=== PATIENT | male | born 1970 | race Caucasian/White ===

== ENCOUNTER → 2018-02-12 12:46 | Outpatient (CLI) | payer OTHER, MEDICAID, SELFPAY ==
--- NOTE | 2018-02-12 12:54 | DI.CT.S_ITS ---
PROCEDURE: CT CHEST W CON INDICATIONS: CHRONIC LYMPHOCYTIC LEUKEMIA SURVEILLANCE TECHNIQUE: After the administration of intravenous contrast, 5 mm thick sections acquired from the pulmonary apices to the posterior costophrenic angles. 7 mm thick coronal and sagittal MIP reformats were acquired. For radiation dose reduction, the following was used: automated exposure control, adjustment of mA and/or kV according to patient size. COMPARISON: [place], [place], PET/CT SKULL BASE TO MID THIGH, 10/31/2017, 9:46. FINDINGS: Image quality: Excellent. Lungs and pleura: Previously noted 0.8 cm spiculated pulmonary nodule in the posteromedial right upper lobe on axial image 11 is stable when compared to prior exam. Previously noted 0.4 cm spiculated pulmonary nodule in the anterolateral right upper lobe on axial image 13 is stable when compared to prior exam. Previously noted 1.5 cm spiculated pulmonary mass in the right upper lobe on axial image 18 is stable when compared to prior exam. An oval groundglass opacity in the posterior right upper lobe has largely resolved (now barely seen on axial image 26. An oval round glass opacity in the right lower lobe on axial image 33 is increased in size and prominence from prior exam. No pleural effusions or pneumothorax. Central and peripheral airways are patent and normal in caliber. Mediastinum: Heart size is normal. No pericardial effusion. No mediastinal or hilar adenopathy by size criteria. Thoracic aorta and central pulmonary arteries are normal in size. Esophagus is normal in caliber. Incidental note is made of the left subclavian vein having aberrant drainage; the drainage pathway is difficult to dilineate on these provided images but appears to drain to the left atrium (less likely main pulmonary artery). Bones and chest wall: No aggressive osseous lesions are identified. Old healed posterior left rib fractures are noted. No vertebral body compression fractures. Bilateral axillary lymph nodes are similar in appearance to prior comparison exam, and remain mildly prominent and increased in number. Previously identified hypoattenuating nodule in the right thyroid lobe currently measures 2.3 cm in size, slightly increased from prior exam. Abdomen: Partially imaged superior pole of the right kidney contains a subcentimeter hypoattenuating focus that is too small to fully characterize on this exam but likely represents a renal cyst. IMPRESSION: #1. Mixed progression of groundglass opacities in the right upper lobe, with one area resolving and another worsening as described above. This may represent sequela of aspiration, low-grade infection, or variable progression of malignancy. #2. Spiculated nodules in the right upper lobe (largest measuring up to 1.5 cm) are again suspicious for neoplasm such as a slow growing adenocarcinoma or metastatic disease, but are stable since comparison PET/ CT of 10/31/17. #3. Mild interval increase in size of a 2.3 cm right thyroid lobe nodule; recommend thyroid ultrasound when feasible (if not already recently performed). #4. Stable bilaterally prominent axillary lymph nodes. Dictated by: Sean Garcia M.D. on 02/12/2018 at 13:25 Approved by: Sean Garcia M.D. on 02/12/2018 at 14:09
== END ==
PROVIDERS: PCP Internal Medicine Hematology & Oncology; Visit Provider Internal Medicine Hematology & Oncology
DX: C91.90 Lymphoid leukemia, unspecified not having achieved remission (principal); E04.1 Nontoxic single thyroid nodule
CPT/HCPCS: 71260; Q9967

== ENCOUNTER → 2018-02-12 13:17 | Outpatient (CLI) | payer OTHER, MEDICAID, SELFPAY ==
[2018-02-12 13:35] LABS: Add Manual Diff / Slide Review YES; Hematocrit 43.8 % (41-53); Mean Corpuscular HGB Conc 34.2 % (30-36); Mean Corpuscular Hemoglobin 31.3 PG (26-34); Mean Corpuscular Volume 91.6 fL (80-100); Platelet Count 183 X10^3/uL (150-400); Red Blood Cell Count 4.78 X10^6/uL (4.5-5.9); Red Cell Distribution Width 13.9 % (11.6-14.8)
[2018-02-12 14:03] LABS: Alanine Aminotransferase 49 IU/L (21-72); Albumin 4.5 g/dL (3.5-5.0); Albumin Globulin Ratio 2.1 (1.0-2.8); Alkaline Phosphatase 57 U/L (38-126); Aspartate Aminotransferase 58 IU/L (17-59); BUN Creatinine Ratio 11.4 (6-22); Bilirubin Total 0.6 mg/dL (0.2-1.3); Blood Urea Nitrogen 8 mg/dL (9-20); Calcium 9.1 mg/dL (8.4-10.2); Carbon Dioxide 25 mmol/L (22-32); Chloride 101 mmol/L (98-107); Estimated Glomerular Filt Rate > 60.0 mL/min (>60); Globulin 2.1 g/dL (1.7-4.1); Glucose 82 mg/dL (70-100); HEMOLYSIS < 15 (0-50); Potassium 4.2 mmol/L (3.4-5.1); Sodium 138 mmol/L (137-145); Total Protein 6.6 g/dL (6.3-8.2)
[2018-02-12 14:05] LABS: Lactate Dehydrogenase 448 U/L (313-618)
[2018-02-12 14:08] LABS: Neutrophils Absolute Manual 3240 /uL (3000-5900); Total Cells Counted 100
== END ==
PROVIDERS: PCP Internal Medicine Hematology & Oncology; Visit Provider Internal Medicine Hematology & Oncology
DX: C91.10 Chronic lymphocytic leukemia of B-cell type not having achieved remission (principal)
CPT/HCPCS: 36415; 80053; 83615; 85025

== ENCOUNTER → 2018-05-13 10:34 | Outpatient (CLI) | payer OTHER, MEDICAID, SELFPAY ==
--- NOTE | 2018-05-13 10:47 | DI.CT.S_ITS ---
PROCEDURE: CT CHEST W CON INDICATIONS: surveillance, lung mass TECHNIQUE: After the administration of intravenous contrast, 5 mm thick sections acquired from the pulmonary apices to the posterior costophrenic angles. 7 mm thick coronal and sagittal MIP reformats were acquired. For radiation dose reduction, the following was used: automated exposure control, adjustment of mA and/or kV according to patient size. COMPARISON: [facility], CT, THORAX WITH CONTRAST, 05/31/2016, 11:37. Outside Facility, , CT THORAX/ABDOMEN/PELVIS WITH CONTRAST, 09/12/2015, 6:26. [facility], CT, CHEST/ABDOMEN WITH CONTRAST, 09/06/2017, 9:22. [facility], [place], PET/CT SKULL BASE TO MID THIGH, 10/31/2017, 9:46. [facility], CT, CT CHEST W CON, 02/12/2018, 12:54. FINDINGS: Image quality: Excellent. Lungs and pleura: No acute consolidation there redemonstration of spiculated nodule involving the right upper lobe image 20 series 2 is again noted and grossly unchanged since 02/12/18. Additional smaller 5 mm ill-defined partially groundglass nodule seen on image 20 series 2 in the right upper lobe, also grossly unchanged. No pleural effusions or pneumothorax. Central and peripheral airways are patent and normal in caliber. Ill-defined tree in bud like opacity seen in the right middle lobe Mediastinum: Heart size is normal. No pericardial effusion. Borderline enlarged right hilar lymph node seen on image 34 series 3. This is unchanged. There is additional confluent prominent hilar soft tissue without definite pathologic enlargement. Thoracic aorta and central pulmonary arteries are normal in size. Esophagus is normal in caliber. No hiatal hernia. Bones and chest wall: No suspicious bony lesions. Presumed chronic left rib fracture on image 45 series 2 with callus. No vertebral body compression fractures. Prominent bilateral axillary lymph nodes without definite pathologic enlargement and preserved fatty hilum. Thyroid gland contains a low-attenuation 2.3 cm nodule, unchanged. Abdomen: Visualized upper abdominal solid organs appear normal. Upper abdominal bowel loops are normal in caliber. IMPRESSION: Overall, grossly unchanged appearance of multiple right upper lobe ill-defined and spiculated nodules, since 02/12/18. Given the relatively short followup time the differential as previously discussed remains the same. Metastatic disease or indolent tumor such as adenocarcinoma cannot be excluded. Low-attenuation right thyroid lobe nodule as before. Dictated by: Jose Elias Dickson M.D. on 05/13/2018 at 15:13 Approved by: Jose Elias Dickson M.D. on 05/13/2018 at 15:23
[2018-05-13 11:09] LABS: Alanine Aminotransferase 43 IU/L (21-72); Albumin 4.4 g/dL (3.5-5.0); Albumin Globulin Ratio 1.8 (1.0-2.8); Alkaline Phosphatase 60 U/L (38-126); Aspartate Aminotransferase 44 IU/L (17-59); BUN Creatinine Ratio 8.6 (6-22); Bilirubin Total 0.4 mg/dL (0.2-1.3); Blood Urea Nitrogen 6 mg/dL (9-20); Calcium 9.3 mg/dL (8.4-10.2); Carbon Dioxide 30 mmol/L (22-32); Chloride 104 mmol/L (98-107); Estimated Glomerular Filt Rate > 60.0 mL/min (>60); Globulin 2.4 g/dL (1.7-4.1); Glucose 77 mg/dL (70-100); HEMOLYSIS < 15 (0-50); Hematocrit 43.8 % (41-53); Hemoglobin 14.9 g/dL (13.5-17.5); Mean Corpuscular HGB Conc 33.9 % (30-36); Mean Corpuscular Hemoglobin 31.3 PG (26-34); Mean Corpuscular Volume 92.1 fL (80-100); Platelet Count 269 X10^3/uL (150-400); Red Blood Cell Count 4.75 X10^6/uL (4.5-5.9); Red Cell Distribution Width 13.7 % (11.6-14.8); Sodium 144 mmol/L (137-145); Total Protein 6.8 g/dL (6.3-8.2)
[2018-05-13 11:12] LABS: Lactate Dehydrogenase 478 U/L (313-618)
[2018-05-13 11:20] LABS: Add Manual Diff / Slide Review YES
[2018-05-13 11:21] LABS: White Blood Cell Count 32.5 X10^3/uL (4.5-11.0)
[2018-05-13 12:51] LABS: Neutrophils Absolute Manual 2275 /uL (3000-5900); Total Cells Counted 100
[2018-05-13 12:53] LABS: Smudge Cells 2+
[2018-05-13 15:32] LABS: RBC Morphology Normal Morphology
== END ==
PROVIDERS: Internal Medicine Hematology & Oncology; PCP Internal Medicine Hematology & Oncology; Visit Provider Internal Medicine Hematology & Oncology
DX: R91.8 Other nonspecific abnormal finding of lung field (principal); C91.90 Lymphoid leukemia, unspecified not having achieved remission; E04.1 Nontoxic single thyroid nodule
CPT/HCPCS: 36415; 71260; 80053; 83615; 85025; Q9967

== ENCOUNTER 2018-05-17 15:00 | Oncology outpatient (ONC) | payer OTHER, MEDICAID, SELFPAY ==
[2018-02-14 15:50] VITALS: BP 105/66; PULSE 80; RESP 18; TEMP 37.2; O2SAT 97
--- NOTE | 2018-02-14 18:13 | ONC.PN ---
Assessment and Plan (1) Papillary thyroid carcinoma Current visit: Yes Status: Acute 02/14/18 18:32 I encouraged him to contact Dr. Hutchinson office to set up ultrasound of thyroid and cervical lymph nodes and FNA if needed at [facility], and a follow-up visit with Dr. Hutchinson afterwards. If cervical lymph node is negative for metastatic thyroid carcinoma, the plan for this gentleman would be right hemithyroidectomy. (2) Right upper lobe pulmonary nodule Current visit: Yes Status: Acute 02/14/18 18:33 In my opinion, the largest right upper lobe spiculated nodule, measuring 1.5 cm in size, even though unchanged as compared to PET-CT 10/2017, remains suspicious for indolent primary lung cancer. I offered of percutaneous biopsy or thoracic surgery consultation, but he is hesitant and would like to continue monitoring, which is reasonable. I have requested a follow-up chest CT with IV contrast in 3 months and afterwards he will see 1 of the new oncology providers in this office. (3) Chronic lymphocytic leukemia Current visit: No Status: Acute 02/14/18 18:34 CLL, stage II, associated with favorable prognosis, non symptomatic, stable. WBC count is 27,000, absolute lymphocyte count 12,000, hemoglobin hematocrit and platelet count all normal. No indication for therapy. Continue monitoring. PN -Subjective Interval history: Shay Dominguez is a 48-year-old chronic smoker gentleman, presenting today for oncology follow-up. He has multiple oncologic diagnosis. He has CLL, verified by flow cytometry of peripheral blood in 08/2015. CLL remains non symptomatic and he has not needed any treatment for it. CLL FISH was positive for deletion 13q, which is associated with favorable prognosis. CLL is stage II. He has established diagnosis of right-sided thyroid papillary carcinoma. He has not undergone surgery for this yet. Recent PET-CT 10/31/2017 for assessment of lung nodules showed right thyroid nodule with SUV 1.9. Thyroid ultrasound 06/06/2017 showed dominant mixed cystic and solid nodule in right lobe, 2.7 cm in size, hypoechoic with irregular margins. Additionally there was a 6 mm solid appearing nodule with hypoechoic appearance and smooth margins in right upper pole. Left lobe was normal. FNA 07/02/2017 showed [place] category III, follicular lesion of undetermined significance. Specimen consisted of abundant follicular cells with scant colloid. Molecular testing with someThyGenX assay was positive for BRAF V600E mutation, which is associated with over 95% likelihood of papillary carcinoma. He was evaluated by Dr. Aaron Hutchinson, slag worker at [facility]. Dr. Hutchinson recommended some repeat ultrasound and FNA of cervical lymph node, but this has not been done yet. Chang it is strongly against doing any testing or treatment at [facility]. He would like to do ultrasound and cervical lymph node FNA at [facility], but this has not been arranged by Dr. Hutchinson office yet. Another oncologic issue is pulmonary nodules. This gentleman has smoked 32 years, x2 packs per day and continues to smoke. He has been monitored for right upper lobe lung nodules. PET-CT 10/31/2017 showed an 8 mm spiculated nodule in medial right upper lobe, progressively increased in size as compared to prior studies, with SUV 1.2. More inferiorly, another spiculated right upper lobe nodule measured up to 1.3 cm in size, SUV 1.5. Third nodule was 4 mm, too small to evaluate with PET-CT. Current CT chest with IV contrast 02/12/2018 redemonstrates the 8 mm, 15 mm, and 4 mm pulmonary nodules, all stable. Previous oval ground-glass opacity in posterior right upper lobe has largely resolved, but another oval ground-glass opacity in right lower lobe has increased in size and prominence. There is stable bilateral prominent axillary lymph nodes, related to CLL. Of all of these nodules, to 1.5 cm nodule is suspicious for slowly growing neoplasm. In fact, we reviewed prior year CT scan from early 2015, and I did not see any evidence of spiculated 1.5 cm current nodule back then. Subjectively, this patient has no physical symptoms or complaints. He denies B symptoms. He continues to smoke but would like to try to quit a near future. He has renal waiting his apartment. He is upset that his thyroid ultrasound and FNA have not been is scheduled at [facility] yet, but at the same time says that he cannot undergo surgery for thyroid cancer until March. Home Medications and Allergies Home Medications Medication Instructions Recorded Confirmed Type oxycodone [OxyContin] 10 mg PO BID #0 10/06/17 History Allergies Allergy/AdvReac Type Severity Reaction Status Date / Time phenytoin [From DILANTIN] AdvReac Severe MACULAR Unverified 10/31/17 11:58 RASH levetiracetam [From [facility]] AdvReac Intermediate RASH Unverified 10/31/17 11:58 Exam Vital signs: Last Vital Signs Temp 99.0 F 02/14/18 15:50 Pulse 80 02/14/18 15:50 Resp 18 02/14/18 15:50 BP 105/66 02/14/18 15:50 Pulse Ox 97 02/14/18 15:50 - Constitutional positive no acute distress - Routine HEENT Exam Head: Present: normocephalic, atraumatic - Routine Neck Exam Present: supple. Absent: lymphadenopathy - Routine Respiratory Exam Present: Clear to auscultation bilaterally
--- NOTE | 2018-02-14 18:18 | P.PNONC_ITS ---
Assessment and Plan (1) Papillary thyroid carcinoma Current visit: Yes Status: Acute 02/14/18 18:32 I encouraged him to contact Dr. Hutchinson office to set up ultrasound of thyroid and cervical lymph nodes and FNA if needed at [facility], and a follow-up visit with Dr. Hutchinson afterwards. If cervical lymph node is negative for metastatic thyroid carcinoma, the plan for this gentleman would be right hemithyroidectomy. (2) Right upper lobe pulmonary nodule Current visit: Yes Status: Acute 02/14/18 18:33 In my opinion, the largest right upper lobe spiculated nodule, measuring 1.5 cm in size, even though unchanged as compared to PET-CT 10/2017, remains suspicious for indolent primary lung cancer. I offered of percutaneous biopsy or thoracic surgery consultation, but he is hesitant and would like to continue monitoring, which is reasonable. I have requested a follow-up chest CT with IV contrast in 3 months and afterwards he will see 1 of the new oncology providers in this office. (3) Chronic lymphocytic leukemia Current visit: No Status: Acute 02/14/18 18:34 CLL, stage II, associated with favorable prognosis, non symptomatic, stable. WBC count is 27,000, absolute lymphocyte count 12,000, hemoglobin hematocrit and platelet count all normal. No indication for therapy. Continue monitoring. PN -Subjective Interval history: Shay Dominguez is a 48-year-old chronic smoker gentleman, presenting today for oncology follow-up. He has multiple oncologic diagnosis. He has CLL, verified by flow cytometry of peripheral blood in 08/2015. CLL remains non symptomatic and he has not needed any treatment for it. CLL FISH was positive for deletion 13q, which is associated with favorable prognosis. CLL is stage II. He has established diagnosis of right-sided thyroid papillary carcinoma. He has not undergone surgery for this yet. Recent PET-CT 10/31/2017 for assessment of lung nodules showed right thyroid nodule with SUV 1.9. Thyroid ultrasound 06/06/2017 showed dominant mixed cystic and solid nodule in right lobe, 2.7 cm in size, hypoechoic with irregular margins. Additionally there was a 6 mm solid appearing nodule with hypoechoic appearance and smooth margins in right upper pole. Left lobe was normal. FNA 07/02/2017 showed [place] category III, follicular lesion of undetermined significance. Specimen consisted of abundant follicular cells with scant colloid. Molecular testing with someThyGenX assay was positive for BRAF V600E mutation, which is associated with over 95% likelihood of papillary carcinoma. He was evaluated by Dr. Aaron Hutchinson, mate fishing vessel at [facility]. Dr. Hutchinson recommended some repeat ultrasound and FNA of cervical lymph node, but this has not been done yet. Chang it is strongly against doing any testing or treatment at [facility]. He would like to do ultrasound and cervical lymph node FNA at [facility], but this has not been arranged by Dr. Hutchinson office yet. Another oncologic issue is pulmonary nodules. This gentleman has smoked 32 years, x2 packs per day and continues to smoke. He has been monitored for right upper lobe lung nodules. PET-CT 10/31/2017 showed an 8 mm spiculated nodule in medial right upper lobe, progressively increased in size as compared to prior studies, with SUV 1.2. More inferiorly, another spiculated right upper lobe nodule measured up to 1.3 cm in size, SUV 1.5. Third nodule was 4 mm , too small to evaluate with PET-CT. Current CT chest with IV contrast 2017 redemonstrates the 8 mm, 15 mm, and 4 mm pulmonary nodules, all stable. Previous oval ground-glass opacity in posterior right upper lobe has largely resolved, but another oval ground-glass opacity in right lower lobe has increased in size and prominence. There is stable bilateral prominent axillary lymph nodes, related to CLL. Of all of these nodules, to 1.5 cm nodule is suspicious for slowly growing neoplasm. In fact, we reviewed prior year CT scan from early 2015, and I did not see any evidence of spiculated 1.5 cm current nodule back then. Subjectively, this patient has no physical symptoms or complaints. He denies B symptoms. He continues to smoke but would like to try to quit a near future. He has renal waiting his apartment. He is upset that his thyroid ultrasound and FNA have not been is scheduled at [facility] yet, but at the same time says that he cannot undergo surgery for thyroid cancer until March. Home Medications and Allergies Home Medications Medication Instructions Recorded Confirmed Type oxycodone [OxyContin] 10 mg PO BID #0 10/06/17 History Allergies Allergy/AdvReac Type Severity Reaction Status Date / Time phenytoin [From DILANTIN] AdvReac Severe MACULAR Unverified 10/31/17 11:58 RASH levetiracetam [From [facility]] AdvReac Intermediate RASH Unverified 10/31/17 11:58 Exam Vital signs: Last Vital Signs Temp 99.0 F 02/14/18 15:50 Pulse 80 02/14/18 15:50 Resp 18 02/14/18 15:50 BP 105/66 02/14/18 15:50 Pulse Ox 97 02/14/18 15:50 - Constitutional positive no acute distress - Routine HEENT Exam Head: Present: normocephalic, atraumatic - Routine Neck Exam Present: supple. Absent: lymphadenopathy - Routine Respiratory Exam Present: Clear to auscultation bilaterally
--- NOTE | 2018-05-17 15:27 | P.PNONC_ITS ---
PN -Subjective Interval history: Chief Complaint: 48 year old man with CLL, thyroid nodule and pulmonary nodules here to review the repeat CT chest result. Oncological History: 1. He has CLL, verified by flow cytometry of peripheral blood in 08/2015. CLL remains asymptomatic and he has not needed any treatment. CLL FISH was positive for deletion 13q, which is associated with favorable prognosis. CLL is stage II. 2. He has established diagnosis of right-sided thyroid papillary carcinoma. He has not undergone surgery for this yet. Thyroid ultrasound 06/06/2017 showed dominant mixed cystic and solid nodule in right lobe, 2.7 cm in size, hypoechoic with irregular margins. Additionally there was a 6 mm solid appearing nodule with hypoechoic appearance and smooth margins in right upper pole. Left lobe was normal. FNA 07/02/2017 showed [place] category III, follicular lesion of undetermined significance. Specimen consisted of abundant follicular cells with scant colloid. Molecular testing with ThyGenX assay was positive for BRAF V600E mutation, which is associated with over 95% likelihood of papillary carcinoma. He was evaluated by Dr. Aaron Hutchinson, certified detention deputy at [facility]. Dr. Oscar recommended total thyroidectomy, but the patient would not agree and would like to accept right thyroidectomy only. Up until now, he has not any any surgery done yet. Recent PET-CT 10/31/2017 for assessment of lung nodules showed right thyroid nodule with SUV 1.9. 3. Another oncologic issue is pulmonary nodules. This gentleman has smoked for 32 years, x2 packs per day and continues to smoke. He has been monitored for right upper lobe lung nodules. PET-CT 10/31/2017 showed an 8 mm spiculated nodule in medial right upper lobe, progressively increased in size as compared to prior studies, with SUV 1.2. More inferiorly, another spiculated right upper lobe nodule measured up to 1.3 cm in size, SUV 1.5. Third nodule was 4 mm , too small to evaluate with PET-CT. Current CT chest with IV contrast 2017 redemonstrates the 8 mm, 15 mm, and 4 mm pulmonary nodules, all stable. Previous oval ground-glass opacity in posterior right upper lobe has largely resolved, but another oval ground-glass opacity in right lower lobe has increased in size and prominence. There is stable bilateral prominent axillary lymph nodes, related to CLL. Of all of these nodules, to 1.5 cm nodule is suspicious for slowly growing neoplasm. Biopsy was recommended, but patient refused. Interim Events: On 04/09/2018, Dr. Oscar requested repeat FNA on the right thyroid nodules. The cytology showed atypia of undetermined significance, as well as FNA of submandibular lymph node showed abnormal B cell population consistaent with involvement by patient's previously diagnosed B cell lymphoproliferative disorder per flow cytometry Yesterday patient underwent repeat CT scan of the chest with contrast. At the CT scan showed overall grossly unchanged appearance of multiple right upper lobe ill-defined at spiculated nodules, since February 12 2018. Given the relatively short follow-up time the differential as previously discussed remains the same. Metastatic disease or indolent tumor such as adenocarcinoma cannot be excluded. Once again low attenuation right thyroid lobe nodule was seen. Clinically, he has no physical symptoms or complaints. He denies B symptoms. He continues to smoke. - Additional ROS All systems PM: reviewed and no additional remarkable complaints except as stated Home Medications and Allergies Allergies Allergy/AdvReac Type Severity Reaction Status Date / Time phenytoin [From DILANTIN] AdvReac Severe MACULAR Verified 05/17/18 15:30 RASH levetiracetam [From [facility]] AdvReac Intermediate RASH Verified 05/17/18 15:30 Exam Vital signs: Last Vital Signs Temp 99.4 F 05/17/18 15:28 Pulse 82 05/17/18 15:28 Resp 16 05/17/18 15:28 BP 130/74 05/17/18 15:28 Pulse Ox 99 05/17/18 15:28 ECOG 1 Narrative: Constitutional: Well developed, fit, not in any acute respiratory distress, average body habitus, well groomed, pleasant and cooperative. HEENT: Normocephalic atraumatic. Extraocular muscle movement intact. Pupils are round, equal and reactive to light and accommodations. Anicteric sclera. No hearing difficulty; Oral mucus membrane moist and without ulcers. Neck: Supple, symmetrical, and tracheal midline; No palpable thyromegaly and no palpable lymph nodes. Respiratory: No use of accessory muscles. Clear to auscultation, and no wheezes or rales or rubs. Cardiovascular: Regular rate and rhythm, S1 and S2 normal, no murmurs gallops or rubs. No JVD. No pitting edema of lower extremities. Abdomen: Soft, nontender, non-distended, bowel sounds normal, no palpable organomegaly, no hernia, no palpable masses. Lower extremities: No palpable pedal edema. Lymphatic: no palpable lymph nodes in the neck; one 1.5 cm node in the right axillar, and on 0.5 cm node in the left axilla. No nodes in groins. Musculoskeletal: normal gait and station, no clubbing, no cyanosis, no pitting edema. Skin: no rashes, no ulcers, no petechiae Neurological: Awake and alert and oriented x3. CN II-XII grossly intact. No focal motor or sensory deficit. Psychiatric: Good judgment, good insight, normal affect, normal thought process , cooperative, no depression, no anxiety. Results - Labs WBC 32.5, HGB 14.9, HCT 43.8, PLT 269 - Imaging CT scan - chest: report reviewed, image reviewed Assessment and Plan (1) Papillary thyroid carcinoma I took time discussing with the patient about the diagnosis of papillary thyroid carcinoma with BRRA V600E mutation. I recommend that patient consider total thyroidectomy, especially in the context of chronic lymphocytic leukemia which is known to be associated with increased risk of malignancies. Patient said that after the New Year, he will try to call Dr. Oscar and proceed with semi-thyroidectomy. He said he would not like take medications for life. Plan: Patient will contact Dr. Oscar for discussion of surgery after New Year (2) Right upper lobe pulmonary nodule I reviewed all the CT imagines since 2016 on the computer monitor myself. The multiple pulmonary nodules are clearly increasing in size but rather slowly. It is suspicious but not definitive for potential malignancy. I talked with the patient it would be better to know the etiologies of the pulmonary nodules. However after reviewing the CT scan results from yesterday which showed stable changes, patient decided that he would like to continue current active surveillance. Plan: 1. CT chest w/o contrast in 6 months 2. RTC after scan (3) Chronic lymphocytic leukemia Patient does not have anemia, thrombocytopenia, B symptoms, or splenomegaly. There is no indications for treatment. We will continue to monitor. Plan: Return to clinic in 6 months, repeat CBC, CMP, LDH, beta 2 microglobulin.
[2018-05-17 15:28] VITALS: BP 130/74; PULSE 82; RESP 16; TEMP 37.4; O2SAT 99
== END 2018-05-30 13:26 ==
PROVIDERS: PCP Internal Medicine Hematology & Oncology; Visit Provider Internal Medicine Hematology & Oncology
DX: C73 Malignant neoplasm of thyroid gland (principal); C91.10 Chronic lymphocytic leukemia of B-cell type not having achieved remission; R91.8 Other nonspecific abnormal finding of lung field; F17.210 Nicotine dependence, cigarettes, uncomplicated
CPT/HCPCS: 99215